=== PATIENT | male | born 1930 | race Hispanic/Latino ===

== ENCOUNTER 2017-12-19 10:15 | Inpatient (IN) | payer OTHER ==
[~2017-12-19] VITALS: Ht 165.1 cm; Wt 77.6 kg
[2017-12-19 10:48] LABS: ABSOLUTE BASOPHIL COUNT 0 /CUMM (0.0-0.2); ABSOLUTE EOSINOPHIL COUNT 0 /CUMM (0.0-0.7); ABSOLUTE LYMPH COUNT 0.5 /CUMM (1.2-3.4); BASOPHIL % 0.2 % (0.0-2.0); EOSINOPHIL % 0 % (0-5); GRANULOCYTE % 88.9 % (42.2-75.2); HEMATOCRIT 41.8 % (42-52); MEAN CORPUSCULAR HGB 30.1 PG (27.0-31.0); MEAN CORPUSCULAR HGB CONC 33.8 G/DL (33.0-37.0); PLATELET COUNT 167 /CUMM (130-400); RED BLOOD CELL CT 4.69 /CUMM (4.70-6.10); WHITE BLOOD CELL COUNT 13.5 /CUMM (4.8-10.8)
--- NOTE | 2017-12-19 11:56 | ED AMS/SEIZURE/WEAK/DIZZY ---
See Addendum History of Present Illness General Chief Complaint: Male Genitourinary Problems Stated Complaint: PT UNABLE TO HOLD URINE INCONTINENCE XS2 Source: patient Exam Limitations: no limitations Vital Signs & Intake/Output Vital Signs & Intake/Output Vital Signs Date Time Temp Pulse Resp B/P B/P Pulse O2 O2 Flow FiO2 Mean Ox Delivery Rate 12/20 1527 99.4 79 18 110/70 93 12/20 1256 94 120/64 12/20 0641 98.0 75 18 116/60 94 12/19 2234 99.1 89 18 126/60 94 Room Air 12/19 2230 Room Air 12/19 2154 98.1 90 18 120/65 95 12/19 2002 99.3 87 19 121/61 97 Room Air ED Intake and Output 12/20 0000 12/19 1200 Intake Total 1500 Output Total 1250 Balance 250 Intake, IV 1500 Output, Urine 1250 Patient 150 lb Weight Weight Reported by Patient Measurement Method Allergies Coded Allergies: NO KNOWN ALLERGIES (09/03/12) Reconcile Medications Finasteride 5 MG TABLET 1 TAB PO DAILY BPH (Reported) Insulin Detemir (Levemir) 100 UNIT/ML VIAL 16 UNITS SC QPM DIABETES (Reported ) Lisinopril 5 MG TABLET 1 TAB PO DAILY HEART (Reported) Metformin HCl 1,000 MG TABLET 1 TAB PO BID DIABETES (Reported) Simvastatin (Zocor*) (Unknown Strength) TABLET (Unknown Dose) PO QPM CHOLESTEROL (Reported) Sitagliptin Phosphate (Januvia) (Unknown Strength) TABLET (Unknown Dose) PO DAILY DIABETES (Reported) Triage Note: PT TO ED WITH C/O UNABLE TO HOLD URINE SINCE THIS AM. Triage Nurses Notes Reviewed? yes Onset: Abrupt Duration: day(s): (1), constant, continues in ED Timing: recent history Injury Environment: home No Modifying Factors: none HPI: 87-year-old male comes into the emergency room for further evaluation increased weakness and some urinary incontinence. Patient has been having some associated fevers and chills at home. Symptoms began this morning. He denies any chest pain shortness of breath vomiting. Some mild nasal congestion. Denies any abdominal pain. Denies any rashes or tick bites he is aware. (Rafa Jimenez) Past History Travel History Traveled to [place] past 21 day No Medical History Any Pertinent Medical History? 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 No (Rafa Jimenez) Review of Systems Review of Systems Constitutional: Reports: see HPI. EENTM: Reports: see HPI. Respiratory: Reports: no symptoms. Cardiovascular: Reports: no symptoms. GI: Reports: no symptoms. Genitourinary: Reports: see HPI. Musculoskeletal: Reports: no symptoms. Skin: Reports: no symptoms. Neurological/Psychological: Reports: no symptoms. Hematologic/Endocrine: Reports: no symptoms. Immunologic/Allergic: Reports: no symptoms. All Other Systems: Reviewed and Negative (Rafa Jimenez) Physical Exam Physical Exam General Appearance: alert, awake, mild distress Head: atraumatic Eyes: Bilateral: normal appearance. Ears, Nose, Throat: normal ENT inspection, hearing grossly normal Neck: normal inspection Respiratory: no respiratory distress Cardiovascular: regular rate/rhythm Gastrointestinal: soft Back: normal inspection Extremities: normal range of motion Neurologic/Psych: awake, alert Skin: intact Core Measures ACS in differential dx? No CVA/TIA Diagnosis No Sepsis Present: No Sepsis Focused Exam Completed? No (Rafa Jimenez) Progress Differential Diagnosis: alcohol intoxication, dehydration, electrolyte imbalance , pneumonia, sepsis, UTI/pyelo, lyme disease Plan of Care: Orders Procedure Date/time Status CBC WITHOUT DIFFERENTIAL 12/21 0600 Active ECHOCARDIOGRAM 12/20 1052 Active CBC WITHOUT DIFFERENTIAL 12/20 06 Complete BASIC ELECTROLYTES PLUS BUN&CR 12/20 06 Complete TROPONIN LEVEL 12/20 0030 Complete EKG 12/20 0030 Active Consistent Carbohydrate 3 12/19 D Active Weight 12/19 2221 Active Vital Signs 12/191 Active Teach/Educate 12/19 2220 Active Pain Treatment and Response 12/19 2220 Active Nutritional Intake, Monitor 12/19 2220 Active Isolation 12/19 2220 Active Intake & Output 07/27 2221 Active Patient Care Conference 12/19 2220 Active Activity/Ambulation 12/19 222 Active TROPONIN LEVEL 12/19 1840 Complete EKG 12/19 1840 Active STREP PNEUMO URINARY ANTIGEN 12/19 171 Complete LEGIONELLA URINARY ANTIGEN 12/19 171 Complete Pathway - chart 12/19 171 Active House Staff 12/19 171 Active VTE Mechanical Prophylaxis 12/19 UNK Active Activity/Ambulation 12/19 UNK Active PHYSICIAN CONSULT 12/19 UNK Active Current Medications Sig/Whitley Start time Last Medication Dose Stop Time Status Admin Atorvastatin Calcium 10 MG 1700 12/20 1700 AC (Lipitor) Azithromycin 500 MG DAILY@1330 12/20 1330 AC 12/20 (Zithromax) 1256 Sodium Chloride 250 ML (Normal Saline 0.9%) Ceftriaxone Sodium 1,000 MG DAILY@1330 12/20 1330 AC 12/20 (Rocephin) 1255 Apixaban 5 MG BID 12/20 1236 AC 12/20 (Eliquis) 1256 Lisinopril 5 MG DAILY 12/20 1130 AC 12/20 (Prinivil) 1256 Insulin Aspart 0 TIDAC 12/20 0800 AC 12/20 (NovoLOG) 1255 Insulin Detemir 16 UNITS QPM 12/19 2100 AC 12/19 (Levemir) 2039 Finasteride 5 MG DAILY 12/19 1836 AC 12/20 (Proscar) 0927 Acetaminophen 650 MG Q6PRN PRN 12/19 1715 AC (Tylenol) Tramadol HCl 25 MG Q6 PRN 12/19 1715 AC (Ultram) Laboratory Tests 12/20/17 0652: Anion Gap 9, Estimated GFR > 60, BUN/Creatinine Ratio 28.8 H, CBC w Diff NO MAN DIFF REQ, RBC 4.51 L, MCV 90.1, MCH 29.5, MCHC 32.8 L, RDW 14.4, MPV 10.2, Gran % 77.8 H, Lymphocytes % 9.9 L, Monocytes % 12.0 H, Eosinophils % 0.3, Basophils % 0, Absolute Granulocytes 10.5 H, Absolute Lymphocytes 1.3, Absolute Monocytes 1.6 H, Absolute Eosinophils 0, Absolute Basophils 0 12/20/17 0030: Troponin I 0.02 12/19/17 1933: Troponin I 0.02 Microbiology 12/19 2329 URINE ROUT: Legionella Antigen - COMP 12/19 2329 URINE ROUT: Streptococcus pneumoniae Antigen (M - COMP Diagnostic Imaging: Viewed by Me: Radiology Read, CT Scan. Discussed w/RAD: Radiology Read, CT Scan. Radiology Impression: PATIENT: HOLLY CHO PRESENT AGE: 87 PATIENT ACCOUNT NO: [id number] : [birth year] LOCATION: [facility] ORDERING PHYSICIAN: Rafa VO SERVICE DATE: 12/19/17 EXAM TYPE : CAT - CT ABD & PELVIS W/O IV CONTRAS; CT CHEST WO IV CONTRAST EXAMINATION: CT CHEST WITHOUT IV CONTRAST CT ABDOMEN AND PELVIS WITHOUT IV CONTRAST CLINICAL INFORMATION: 87-year-old male with fever and weakness. Evaluate for pneumonia or congestive heart failure. Incontinence. Blood in urine. COMPARISON: CXR from TECHNIQUE: Noncontrast multidetector CT imaging examination of the chest , abdomen and pelvis was performed. Axial images are displayed at 0.625 mm and 5 mm slice thickness. Coronal and sagittal reformatted images were generated at the technologist's workstation and submitted for review. DLP: 558 mGy-cm FINDINGS: CHEST - LUNGS and PLEURA: Images of the chest are partially degraded in quality by respiratory motion. Trachea and mainstem bronchi are widely patent. Bronchial thakur are thickened in both lungs. No interstitial edema, pleural effusion or pneumothorax. Multiple micronodular opacities in the lingula are likely secondary to inflammation or infection of the small airways (i.e., probable bronchiolitis). In addition, there are scattered micronodular opacities and scattered, small areas of groundglass and airspace opacity in the left lower lobe. Mild patchy opacity of consolidation and/or atelectasis in the inferior lingula, as well. MEDIASTINUM: Mild cardiomegaly with atherosclerotic calcification of coronary arteries and thoracic aorta. No aortic aneurysm. Calcification is seen at the level of the aortic and mitral valves. No pericardial effusion. The esophagus and thyroid gland are grossly unremarkable. No mediastinal mass. LYMPHATICS: No pathologic sized axillary, hilar or mediastinal lymph nodes. CHEST WALL/BONES: Several old, healed bilateral rib fractures. No acute osseous abnormality. Multilevel osteophyte formation of the visualized degenerated lower cervical and thoracic spine. ABDOMEN AND PELVIS - HEPATOBILIARY: Liver has normal size, contour and attenuation. Gallbladder is unremarkable. No intrahepatic or extrahepatic bile duct dilatation. PANCREAS: Unremarkable. SPLEEN: Unremarkable. ADRENAL GLANDS: Unremarkable. KIDNEYS, URETERS, BLADDER: Kidneys have normal size, cortical thickness and attenuation. Renal vascular calcifications are noted. No nephrolithiasis or ureterolithiasis. Mild fullness of the renal pelvis, bilaterally; however, no overt hydronephrosis. 1.2 cm cortical cyst of the left upper pole and 3.7 cm cortical cyst of the left lower pole. Probable peripelvic cyst in the left lower pole, as well. Urinary bladder, which is moderately distended, has normal wall thickness. No noncontrast imaging evidence of bladder mass or bladder calculi. GI TRACT AND PERITONEUM: Stomach is unremarkable. Loops of bowel are normal in caliber. Appendix is normal. No evidence of acute inflammation or obstruction along the gastrointestinal tract. The amount of fecal material within the colon and rectum is in the normal range. No ascites or pneumoperitoneum. ABDOMINAL WALL: No acute findings. VASCULAR: There is extensive atherosclerotic calcification of the abdominal aorta (and branch vessels) without aortic aneurysm. No retroperitoneal hematoma. LYMPH NODES: No pathologic sized lymph nodes within the abdomen or pelvis. PELVIC VISCERA: Prostate gland is normal in size. No pelvic mass or free fluid. OSSEOUS STRUCTURES: Bone density is diffusely decreased. Within the lumbar spine, facet osteoarthritis is worst at L4-L5. There is vacuum disc degeneration at L4-L5 and L5-S1 and 0.4 cm of grade 1 anterolisthesis of L4 on L5. Multifactorial, severe spinal canal stenosis is present at L4-L5. Osteoarthritis of sacroiliac joints and old, healed, nondisplaced left sacral fracture. Old, healed fractures of left pubic rami. Mild osteoarthritis of hips. IMPRESSION: 1. Mild cardiomegaly without pulmonary edema or pleural effusion. 2. Bronchial thakur are thickened in both lungs, suggestive of airway inflammation. Micronodular opacities are present within the lingula and left lower lobe. Addition, there are patchy groundglass and airspace opacities of the left lower lobe and lingula. Findings are consistent with pneumonia. 3. No specific source of hematuria is identified. No evidence of urolithiasis. Also, no evidence of bladder or renal neoplasm on this noncontrast imaging examination. DICTATED BY: Adrián Briseno MD DATE/TIME DICTATED:12/19/171447 CLERK SPECIALIST:MP DATE/TIME TRANSCRIBED:12/19/171447 CONFIDENTIAL, DO NOT COPY WITHOUT APPROPRIATE AUTHORIZATION. <Electronically signed in Other Vendor System> SIGNED BY: Adrián Briseno MD 12/19/17 1510 Initial ED EKG: rate (99), AFIB, RBBB (Rafa Jimenez) Departure Departure Disposition: STILL A PATIENT Condition: Stable Clinical Impression Primary Impression: Left lower lobe pneumonia Referrals: Patient Has No Primary Care Dr (PCP/Family) Departure Forms: Customer Survey General Discharge Information Admission Note Spoke With: Lavonne GUPTA,Esdras Documentation of Exam: Documentation of any treatments & extenuating circumstances including Concerns Regarding Discharge (functional status, medication knowledge or non-compliance, living conditions, etc.) that warrant an admission rather than observation: Patient will require IV antibiotics. Physical therapy consultation. Case management consultation. Medically not safe for discharge. Possibly urology consultation for hematuria. (Rafa Jimenez) PA/AIRPLANE CABIN ATTENDANT Co-Sign Statement Statement: ED Attending supervision documentation- [X] I saw and evaluated the patient. I have also reviewed all the pertinent lab results and diagnostic results. I agree with the findings and the plan of care as documented in the PA's/AIRPLANE CABIN ATTENDANT's documentation. [] I have reviewed the ED Record and agree with the PA's/AIRPLANE CABIN ATTENDANT's documentation. [] Additions or exceptions (if any) to the PAs/AIRPLANE CABIN ATTENDANT's note and plan are summarized below: [] 12/19/17 1703 87 year old male with nausea, chest clear, normal lactic, being admitted for PNA. Resident Co-Sign Statement Statement: ED Attending supervision documentation- [] I saw and evaluated the patient. I have also reviewed all the pertinent lab results and diagnostic results. I agree with the findings and the plan of care as documented in the Resident's documentation. [] I have reviewed the ED Record and agree with the Resident's documentation. [] Additions or exceptions (if any) to the Resident's note and plan are summarized below: [] (Karen GUPTA,[facility])
[2017-12-19] MEDS ORDERED: FINASTERIDE5 M1 PO (12:25)
[2017-12-19] MEDS ORDERED: LISINOPRIL5 M1 PO (12:25)
[2017-12-19] MEDS ORDERED: METFORMIN HCL1000 M1 PO (12:25)
[2017-12-19] MEDS ORDERED: JANUVIA100 M1 PO (12:25)
[2017-12-19] MEDS ORDERED: LEVEMIR100 UNIT/1 SC (12:26)
[2017-12-19] MEDS ORDERED: ZOCOR20 M1 PO (12:26)
--- NOTE | 2017-12-19 12:55 | RADIOLOGY REPORT ---
EXAMINATION: XR CHEST CLINICAL INFORMATION: Cough. Fever. Congestion. COMPARISON: Chest done on 09/03/2012. TECHNIQUE: 2 views of the chest were obtained. FINDINGS: Mild pulmonary venous congestion is noted. The cardiomediastinal silhouette is mildly enlarged. Subtle retrocardiac airspace disease is noted, may represent atelectasis versus infiltrate. The remainder of the lung sorensen are clear. There is no evidence of any pleural effusion seen. The visualized upper abdomen is unremarkable. IMPRESSION: Features consistent with mild CHF. Subtle retrocardiac airspace disease is noted, may represent superimposed atelectasis, infiltrate or combination thereof.
--- NOTE | 2017-12-19 15:10 | CT SCAN REPORT ---
EXAMINATION: CT CHEST WITHOUT IV CONTRAST CT ABDOMEN AND PELVIS WITHOUT IV CONTRAST CLINICAL INFORMATION: 87-year-old male with fever and weakness. Evaluate for pneumonia or congestive heart failure. Incontinence. Blood in urine. COMPARISON: CXR from 12/19/2017 TECHNIQUE: Noncontrast multidetector CT imaging examination of the chest, abdomen and pelvis was performed. Axial images are displayed at 0.625 mm and 5 mm slice thickness. Coronal and sagittal reformatted images were generated at the technologist's workstation and submitted for review. DLP: 558 mGy-cm FINDINGS: CHEST - LUNGS and PLEURA: Images of the chest are partially degraded in quality by respiratory motion. Trachea and mainstem bronchi are widely patent. Bronchial thakur are thickened in both lungs. No interstitial edema, pleural effusion or pneumothorax. Multiple micronodular opacities in the lingula are likely secondary to inflammation or infection of the small airways (i.e., probable bronchiolitis). In addition, there are scattered micronodular opacities and scattered, small areas of groundglass and airspace opacity in the left lower lobe. Mild patchy opacity of consolidation and/or atelectasis in the inferior lingula, as well. MEDIASTINUM: Mild cardiomegaly with atherosclerotic calcification of coronary arteries and thoracic aorta. No aortic aneurysm. Calcification is seen at the level of the aortic and mitral valves. No pericardial effusion. The esophagus and thyroid gland are grossly unremarkable. No mediastinal mass. LYMPHATICS: No pathologic sized axillary, hilar or mediastinal lymph nodes. CHEST WALL/BONES: Several old, healed bilateral rib fractures. No acute osseous abnormality. Multilevel osteophyte formation of the visualized degenerated lower cervical and thoracic spine. ABDOMEN AND PELVIS - HEPATOBILIARY: Liver has normal size, contour and attenuation. Gallbladder is unremarkable. No intrahepatic or extrahepatic bile duct dilatation. PANCREAS: Unremarkable. SPLEEN: Unremarkable. ADRENAL GLANDS: Unremarkable. KIDNEYS, URETERS, BLADDER: Kidneys have normal size, cortical thickness and attenuation. Renal vascular calcifications are noted. No nephrolithiasis or ureterolithiasis. Mild fullness of the renal pelvis, bilaterally; however, no overt hydronephrosis. 1.2 cm cortical cyst of the left upper pole and 3.7 cm cortical cyst of the left lower pole. Probable peripelvic cyst in the left lower pole, as well. Urinary bladder, which is moderately distended, has normal wall thickness. No noncontrast imaging evidence of bladder mass or bladder calculi. GI TRACT AND PERITONEUM: Stomach is unremarkable. Loops of bowel are normal in caliber. Appendix is normal. No evidence of acute inflammation or obstruction along the gastrointestinal tract. The amount of fecal material within the colon and rectum is in the normal range. No ascites or pneumoperitoneum. ABDOMINAL WALL: No acute findings. VASCULAR: There is extensive atherosclerotic calcification of the abdominal aorta (and branch vessels) without aortic aneurysm. No retroperitoneal hematoma. LYMPH NODES: No pathologic sized lymph nodes within the abdomen or pelvis. PELVIC VISCERA: Prostate gland is normal in size. No pelvic mass or free fluid. OSSEOUS STRUCTURES: Bone density is diffusely decreased. Within the lumbar spine, facet osteoarthritis is worst at L4-L5. There is vacuum disc degeneration at L4-L5 and L5-S1 and 0.4 cm of grade 1 anterolisthesis of L4 on L5. Multifactorial, severe spinal canal stenosis is present at L4-L5. Osteoarthritis of sacroiliac joints and old, healed, nondisplaced left sacral fracture. Old, healed fractures of left pubic rami. Mild osteoarthritis of hips. IMPRESSION: 1. Mild cardiomegaly without pulmonary edema or pleural effusion. 2. Bronchial thakur are thickened in both lungs, suggestive of airway inflammation. Micronodular opacities are present within the lingula and left lower lobe. Addition, there are patchy groundglass and airspace opacities of the left lower lobe and lingula. Findings are consistent with pneumonia. 3. No specific source of hematuria is identified. No evidence of urolithiasis. Also, no evidence of bladder or renal neoplasm on this noncontrast imaging examination.
--- NOTE | 2017-12-19 17:32 | History & Physical ---
See Addendum De Rodriguez 12/19/17 6419: General Information and HPI MD Statement: I have seen and personally examined HOLLY CHO and documented this H&P. The patient is a 87 year old M who presented with a patient stated chief complaint of [weakness]. Source of Information: family (Daughter-JESS) Exam Limitations: no limitations History of Present Illness: Mr. Cho is a 87-year-old male with past medical history significant for: Hypertension, hyperlipidemia, BPH, type 2 diabetes mellitus. Patient is described as special needs by his daughter, unable to communicate clearly does not speak Turkish only Moroccan, all information received from daughter Nena. Patient was complaining of nausea and weakness since this morning, generalized weakness, states has not been feeling well. Patient had one episode of urinating on himself this morning, this is never happened before. Patient denies cough, fever, chills, abdominal pain, vomiting, diarrhea, constipation, increased urinary frequency, urgency, pain with urination, more episodes of inability to contain his urine. Denies sick contacts, recent travel. Ed vitals: Temperature 101.1, heart rate 97, respiratory rate 18, blood pressure 130/71, O2 sat 95% on room air ED labs: White blood cell 13.5, BNP 1430, glucose 207 Allergies/Medications Allergies: Coded Allergies: NO KNOWN ALLERGIES (09/03/12) Home Med list Finasteride 5 MG TABLET 1 TAB PO DAILY BPH (Reported) Insulin Detemir (Levemir) 100 UNIT/ML VIAL 16 UNITS SC QPM DIABETES (Reported ) Lisinopril 5 MG TABLET 1 TAB PO DAILY HEART (Reported) Metformin HCl 1,000 MG TABLET 1 TAB PO BID DIABETES (Reported) Simvastatin (Zocor*) (Unknown Strength) TABLET (Unknown Dose) PO QPM CHOLESTEROL (Reported) Sitagliptin Phosphate (Januvia) (Unknown Strength) TABLET (Unknown Dose) PO DAILY DIABETES (Reported) Past History Travel History Traveled to [place] past 21 day No Medical History Neurological: NONE EENT: NONE Cardiovascular: hypertension, HIGH CHOLESTEROL Respiratory: NONE Gastrointestinal: NONE Hepatic: NONE Renal: benign prost hyperplasia Musculoskeletal: NONE Psychiatric: NONE Endocrine: diabetes Blood Disorders: NONE Cancer(s): NONE DISTRICT WIRE CHIEF/Reproductive: NONE History of MRSA: No History of VRE: No History of CDIFF: No Surgical History Surgical History: non-contributory Past Family/Social History Psychosocial History ETOH Use: denies use Illicit Drug Use: denies illicit drug use Review of Systems Review of Systems Constitutional: Reports: see HPI. Exam & Diagnostic Data Last 24 Hrs of Vital Signs/I&O Vital Signs Date Time Temp Pulse Resp B/P B/P Pulse O2 O2 Flow FiO2 Mean Ox Delivery Rate 12/19 1651 99.1 88 19 115/69 95 Room Air 12/19 1239 99.9 90 17 101/55 94 Room Air 12/19 1122 100.3 12/19 1112 100.3 12/19 1023 101.1 97 18 130/71 95 Room Air Room Air Intake & Output 12/19 1600 12/19 0800 12/19 0000 Intake Total 500 Output Total 600 Balance -100 Intake, IV 500 Output, Urine 600 Patient 150 lb Weight Weight Reported by Patient Measurement Method Physical Exam General Appearance Alert, Oriented X3, Cooperative Skin No Rashes, Stasis Dermatitis of r. lower extremity HEENT Atraumatic, Blind in Right Eye Neck Supple, No LAD Cardiovascular Regular Rate, Normal S1, Normal S2 Lungs Normal Air Movement, Minimal expiratory wheezing bilat. lung bases Abdomen Normal Bowel Sounds, Soft, No Tenderness Neurological Strength at 5/5 X4 Ext, Cranial Nerves 3-12 NL Extremities No Cyanosis, No Edema, Normal Pulses Vascular Normal Pulses, Pulses Symmetrical Last 24 Hrs of Labs/Haja: Laboratory Tests 12/19/17 1049: Urinalysis LIGHT H, Urine Color YEL, Urine Clarity CLEAR, Urine pH 6.0, Ur Specific [place] 1.025, Urine Protein TRACE H, Urine Ketones 15 H, Urine Nitrite NEG, Urine Bilirubin NEG, Urine Urobilinogen 0.2, Ur Leukocyte Esterase NEG, Ur Microscopic SEDIMENT EXAMINED, Urine RBC 15-25 H, Urine WBC 1-3 H, Ur Epithelial Cells RARE, Urine Bacteria RARE H, Urine Mucus MANY H, Urine Hemoglobin MOD H, Urine Glucose >=1000 H 12/19/17 1030: Anion Gap 12, Estimated GFR > 60, BUN/Creatinine Ratio 31.3 H, Glucose 207 H, Lactic Acid 1.3, Calcium 9.7, Total Bilirubin 0.9, AST 20, ALT 44, Alkaline Phosphatase 45, Troponin I < 0.01, Rpy-T-Oeyrcietlhp Pept 1430 H, Total Protein 6.9, Albumin 4.1, Globulin 2.8, Albumin/Globulin Ratio 1.5, Lipase 98, CBC w Diff NO MAN DIFF REQ, RBC 4.69 L, MCV 89.0, MCH 30.1, MCHC 33.8, RDW 14.0, MPV 9.0, Gran % 88.9 H, Lymphocytes % 3.4 L, Monocytes % 7.5, Eosinophils % 0, Basophils % 0.2, Absolute Granulocytes 12.0 H, Absolute Lymphocytes 0.5 L, Absolute Monocytes 1.0 H, Absolute Eosinophils 0, Absolute Basophils 0 Microbiology 12/19 1713 URINE ROUT: Legionella Antigen - COLB 12/19 1713 URINE ROUT: Streptococcus pneumoniae Antigen (M - COLB 12/19 1145 BLOOD: Blood Culture - RECD 12/19 1049 URINE ROUT: Urine Culture - RECD 12/19 1030 BLOOD: Blood Culture - RECD Diagnostic Data EKG Results New onset atrial fibrillation, right bundle branch block CXR Results IMPRESSION: Features consistent with mild CHF. Subtle retrocardiac airspace disease is noted, may represent superimposed atelectasis, infiltrate or combination thereof. Other Results Chest CT: Bronchial thakur are thickened in both lungs, suggestive of airway inflammation. Micronodular opacities are present within the lingula and left lower lobe. Addition, there are patchy groundglass and airspace opacities of the left lower lobe and lingula. Findings are consistent with pneumonia. Abdo/Pelvic CT: IMPRESSION No specific source of hematuria is identified. No evidence of urolithiasis. Also , no evidence of bladder or renal neoplasm on this noncontrast imaging examination. Assessment/Plan Assessment: Mr. Cho is a 87-year-old male with past medical history significant for: Hypertension, hyperlipidemia, BPH, type 2 diabetes mellitus. Patient was complaining of nausea and weakness since morning of 12/19/17, generalized weakness, states has not been feeling well. Patient had one episode of urinating on himself this morning, this is never happened before Problem List: 1. Pneumonia 2. NewonsetA. fib 3. hypertension 4. Hyperlipidemia 5. Type 2 diabetes mellitus 6. BPH #Pneumonia: Patient had fever on admission, increased white blood cell, CT findings are consistent with pneumonia. Curb 65 score = 2 -Follow-up respiratory cultures -Follow-up blood cultures -Follow-up urinary strep pneumo and Legionella #New onset A. fib: Comparison EKG 2013 showed regular rate and rhythm, right bundle block branch block. -Consult cardiology w/ Dr. Aden -1 time dose Lovenox for anticoagulation -Transfer to telemetry Hypertension -Will hold home antihypertensive medications for the night, reassess in a.m. -Received a one-time dose Lasix in the ED Hyperlipidemia: BPH: Type 2 diabetes mellitus: -Consistent carbohydrate 3 diet As Ranked By This Provider Problem List: 1. Pneumonia Core Measures/Misc (02/09) Acute Coronary Syndrome ACS Diagnosis: No Congestive Heart Failure Congestive Heart Failure Diagnosis No Cerebrovascular Accident CVA/TIA Diagnosis: No VTE (View Protocol) VTE Risk Factors Age>40 No Mechanical VTE Prophylaxis d/t N/A MechProphylax Ordered No VTE Pharm Prophylaxis d/t NA PharmProphylax ordered (Given Lovenox ) Sepsis (View protocol) Sepsis Present: No If YES complete Sepsis Event Note If YES complete Sepsis Event Note Esdras Banerjee 12/19/17 7914: Core Measures/Misc (02/09) Sepsis (View protocol) If YES complete Sepsis Event Note If YES complete Sepsis Event Note Attending MD Review Statement Attending Statement Attending MD Statement: examined this patient, discuss w/resident/PA/RAILWAY TRACK WORKER, agreed w/resident/PA/RAILWAY TRACK WORKER, discussed with family, reviewed EMR data (avail), discussed with nursing, discussed with case mgmt, reviewed images, amended to note Attending Assessment/Plan: This is an 87-year-old male with history of diabetes, hypertension, BPH, hyperlipidemia, and possible cognitive impairment, Moroccan speaking brought in to the emergency department by his daughter for weakness, chills and cough. Patient poor historian, obtained from daughter bedside. Patient is fouund to have temp 101.1, leukocytosis and CT chest showing pneumonia with patchy groundglass and airspace opacities of the left lower lobe and lingula. Findings are consistent with pneumonia. Patient will be admitted to inpatient medical services for community acquired pneumonia. Start iv ceftriaxone and azithimycin, oxygen supplementation as needed, bronchodilators as needed, blood cultures, urine for strep and legionella. RISS and titrate insulin as needed. Obtain repeat UA and start flomax for bph if not on home meds. gi/dvt prophylaxis full code. Rosanne GUPTA,Melania 12/19/17 1934: Core Measures/Misc (02/09) Sepsis (View protocol) Sepsis Present: Yes If YES complete Sepsis Event Note If YES complete Sepsis Event Note Inpatient Sepsis Exam Sepsis Cardiac Exam: Regular Rate/Rhythm Sepsis Resp Exam: CTA Sepsis Cap Refill Exam: >2 sec Sepsis Peripheral Pulse Exam: Normal Sepsis Peripheral Pulse Location: Dorsalis Pedis Sepsis Skin Color Exam: Normal for Ethnicity Skin Temp/Moisture Exam: Warm/Dry Resident Review Statement Resident Statement: examined this patient, discussed with spring intern, agreed with spring intern, discussed with family, reviewed EMR data (avail), discussed with nursing , reviewed images Other Findings: Mr. Cho is an 87-year-old gentleman with past medical history significant for hypertension, hyperlipidemia, type 2 diabetes, BPH, and hearing loss is brought in by her daughter because of weakness and an episode of urinary incontinence this morning. Patient is [place]an-speaking and history was obtained from the daughter. Per the daughter, pt was in his usual state of health until this morning when he started complaining of fatigue and had an episode of incontinence which according to the daughter was new and has never happened in the past. Denies any other symptoms including fever/chills, abdominal pain, pain/burning with urination, urinary frequency urgency, cough, chest pain, palpitations, shortness of breath or orthopnea. Vitals on admission were temperature of 101.1, heart rate 97, respiratory rate 18, blood pressure 130/71 and oxygen saturation 95% on room air. Labs were significant for WBC count of 13.5 without bandemia, BUN/creatinine of 25/0.8, blood glucose 207, and proBNP of 1430. UA showed 15-25 RBC, and Urine glucose > 1000. CXR and CT chest were positive for LLB and lingular Pneumonia. Problem List 1. Sepsis likely 2/2 CAP; CURB-65 score is 2, needs inpatient treatment. Meets SIRS criteria with elevated WBC count, Temp 101.1 and HR 97. Even though patient meets sepsis criteria, clinically did not require aggresive IV hydration. Also even the patient does not have any respiratory symptoms, given his elevated white count, fever and CT findings of pneumonia we will start the patient on antibiotics. 2. A.Fib on recent EKG,rate controlled, no previous Hx 3. Microscopic hematuria - UA negative for any infection, also CT abd/pelvis negative for any pathology. 4. Elevated Pro-BNP with Cardiomegaly on CXR, No hx of CHF 5. Hx of Diabetes 6. Hx of hypertension, hyperlipidemia and BPH. - Will Admit the patient to telemetry floor - Patient was given IV ceftriaxone and azithromycin in the ER, will continue. - Patient also received 1 L of normal saline bolus in the ER, will hold off on further fluids. - Follow-up blood cultures, urine cultures, urine strep and L egionella antigen. -Supplemental oxygen if needed. - Cardiology consult for new onset A. fib. - Repeat troponin and EKG 3. - Patient was given full dose of Lovenox 1 for anticoagulation. - Patient was given Lasix x 1 in ER for concerns of CHF due to elevated Pro-BNP and Mild CHF on CXR. Clinically pt does not seem to have CHF, will hold off on any further Lasix. -Hold metformin and Januvia, start the patient on NovoLog sliding scale and continue Levemir 15 units at bedtime. -Accu-Cheks TIDAC and at bedtime. - Confirm doses of Simvastatin and Januvia with daughter in am. Resume simvastatin after confirming the dose. - Outpatient follow up with Urology. - Continue Losartan and Flomax. DVT prophylaxis; ALPS and S/C lovenox Patient is Full code.
[2017-12-19 22:34] VITALS: BP 126/60
[2017-12-20 06:41] VITALS: BP 116/60
[2017-12-20 08:28] LABS: ABSOLUTE BASOPHIL COUNT 0 /CUMM (0.0-0.2); ABSOLUTE EOSINOPHIL COUNT 0 /CUMM (0.0-0.7); ABSOLUTE GRANULOCYTE CT 10.5 /CUMM (1.4-6.5); ABSOLUTE LYMPH COUNT 1.3 /CUMM (1.2-3.4); ABSOLUTE MONOCYTE COUNT 1.6 /CUMM (0.10-0.60); BASOPHIL % 0 % (0.0-2.0); EOSINOPHIL % 0.3 % (0-5); GRANULOCYTE % 77.8 % (42.2-75.2); HEMATOCRIT 40.7 % (42-52); MEAN CORPUSCULAR HGB 29.5 PG (27.0-31.0); MEAN CORPUSCULAR HGB CONC 32.8 G/DL (33.0-37.0); MEAN CORPUSCULAR VOLUME 90.1 FL (80.0-94.0); MEAN PLATELET VOLUME 10.2 FL (7.4-10.4); PLATELET COUNT 147 /CUMM (130-400); RBC DISTRIBUTION WIDTH 14.4 % (11.5-14.5); RED BLOOD CELL CT 4.51 /CUMM (4.70-6.10); WHITE BLOOD CELL COUNT 13.4 /CUMM (4.8-10.8)
--- NOTE | 2017-12-20 09:48 | PN- Housestaff ---
Frederick GUPTA,Rosita 12/20/17 0948: Subjective Follow-up For: pneumonia new onset afib Tele-Events Since Last Visit: afib 79-91 no events Subjective: Patient seen and examined. He denies any chest pain or shortness of breath. His vitals are stable and he is not on any oxygen. He has continued to be in atrial fibrillation. Review of Systems Constitutional: Reports: no symptoms. Cardiovascular: Reports: no symptoms. Respiratory: Reports: no symptoms. Gastrointestinal: Reports: no symptoms. Musculoskeletal: Reports: no symptoms. Neurological/Psychological: Reports: see HPI. Objective Last 24 Hrs of Vital Signs/I&O Vital Signs Date Time Temp Pulse Resp B/P B/P Pulse O2 O2 Flow FiO2 Mean Ox Delivery Rate 12/20 0641 98.0 75 18 116/60 94 12/19 2234 99.1 89 18 126/60 94 Room Air 12/19 2230 Room Air 12/19 2154 98.1 90 18 120/65 95 12/19 2003 99.3 87 19 121/61 97 Room Air 12/19 1651 99.1 88 19 115/69 95 Room Air 12/19 1239 99.9 90 17 101/55 94 Room Air 12/19 1122 100.3 12/19 1112 100.3 Intake & Output 12/20 1600 12/20 0800 12/20 0000 Intake Total 240 1000 Output Total 600 650 Balance -360 350 Intake, IV 1000 Intake, Oral 240 Output, Urine 600 650 Physical Exam General Appearance: Alert, Cooperative, No Acute Distress Skin: No Rashes, chronic venous insufficiency lower ext bilaterally Skin Temp/Moisture Exam: Warm/Dry Sepsis Skin Exam (color): Normal for Ethnicity HEENT: Atraumatic, EOMI, Mucous Membr. moist/pink Neck: Supple, No JVD Cardiovascular: Regular Rate, Normal S1, Normal S2, No Murmurs Lungs: lower left lung crackles and very mild exp wheezes througout Abdomen: Normal Bowel Sounds, Soft, No Tenderness Extremities: No Clubbing, No Cyanosis, No Edema Current Medications: Current Medications Sig/Whitley Start time Last Medication Dose Route Stop Time Status Admin Acetaminophen 650 MG Q6PRN PRN 12/19 1715 AC PO Acetaminophen 650 MG ONCE ONE 12/19 1130 DC 12/19 PO 12/19 1131 1122 Acetaminophen 0 .STK-MED ONE 12/19 1121 DC PO Azithromycin 500 MG DAILY@1330 12/20 1330 AC Sodium Chloride 250 ML IV Azithromycin 500 MG ONCE ONE 12/19 1300 DC 12/19 Sodium Chloride 250 ML IV 12/19 1359 1340 Ceftriaxone Sodium 1,000 MG DAILY@1330 12/20 1330 AC IV Ceftriaxone Sodium 0 .STK-MED ONE 12/19 1320 DC .ROUTE Ceftriaxone Sodium 1,000 MG ONCE ONE 12/19 1300 DC 12/19 IV 12/19 1301 1340 Enoxaparin Sodium 0 .STK-MED ONE 12/19 2035 DC SC Enoxaparin Sodium 0 .STK-MED ONE 12/19 2034 DC SC Enoxaparin Sodium 70 MG ONCE ONE 12/19 1830 DC 12/19 SC 12/19 183 2039 Enoxaparin Sodium 40 MG DAILY 12/19 1711 DC SC Finasteride 5 MG DAILY 12/19 1836 AC 12/20 PO 0927 Furosemide 0 .STK-MED ONE 12/19 1319 DC IV Furosemide 40 MG ONCE ONE 12/19 1300 DC 12/19 IV 12/19 1301 1340 Insulin Aspart 0 TIDAC 12/20 0800 AC SC Insulin Detemir 16 UNITS QPM 12/19 2100 AC 12/19 SC 2039 Sodium Chloride 1,000 ML BOLUS ONE 12/19 1615 DC 12/19 IV 12/19 1714 1650 Sodium Chloride 1,000 ML BOLUS ONE 12/19 1300 CAN IV 12/19 1359 Tramadol HCl 25 MG Q6 PRN 12/19 1715 AC PO Last 24 Hrs of Lab/Haja Results Last 24 Hrs of Labs/Mics: Laboratory Tests 12/20/17 0652: Anion Gap 9, Estimated GFR > 60, BUN/Creatinine Ratio 28.8 H, CBC w Diff NO MAN DIFF REQ, RBC 4.51 L, MCV 90.1, MCH 29.5, MCHC 32.8 L, RDW 14.4, MPV 10.2, Gran % 77.8 H, Lymphocytes % 9.9 L, Monocytes % 12.0 H, Eosinophils % 0.3, Basophils % 0, Absolute Granulocytes 10.5 H, Absolute Lymphocytes 1.3, Absolute Monocytes 1.6 H, Absolute Eosinophils 0, Absolute Basophils 0 12/20/17 0030: Troponin I 0.02 12/19/17 1933: Troponin I 0.02 12/19/17 1049: Urinalysis LIGHT H, Urine Color YEL, Urine Clarity CLEAR, Urine pH 6.0, Ur Specific [place] 1.025, Urine Protein TRACE H, Urine Ketones 15 H, Urine Nitrite NEG, Urine Bilirubin NEG, Urine Urobilinogen 0.2, Ur Leukocyte Esterase NEG, Ur Microscopic SEDIMENT EXAMINED, Urine RBC 15-25 H, Urine WBC 1-3 H, Ur Epithelial Cells RARE, Urine Bacteria RARE H, Urine Mucus MANY H, Urine Hemoglobin MOD H, Urine Glucose >=1000 H Microbiology 12/19 2330 URINE ROUT: Legionella Antigen - COMP 12/19 233 URINE ROUT: Streptococcus pneumoniae Antigen (M - COMP 12/19 1145 BLOOD: Blood Culture - RECD 12/19 1049 URINE ROUT: Urine Culture - RES GRAM POSITIVE COCCI Assessment/Plan Assessment: Mr. Lopez is a 87-year-old male with past medical history significant for: Hypertension, hyperlipidemia, BPH, type 2 diabetes mellitus. Patient was complaining of nausea and weakness since morning of 12/19/17, generalized weakness, states has not been feeling well. Patient had one episode of urinating on himself this morning, this is never happened before Problem List: 1. Pneumonia 2. NewonsetA. fib 3. hypertension 4. Hyperlipidemia 5. Type 2 diabetes mellitus 6. BPH #Pneumonia: Patient had fever on admission, increased white blood cell, CT findings are consistent with pneumonia. Curb 65 score = 2. Chest x-ray showed mild CHF with potential superimposed atelectasis, infiltrate. CT scan of the chest showed bronchial thickening, left lower lobe and lingula patchy groundglass and airspace opacities consistent with pneumonia. Lactic acid negative. -WBC count has remained about stable from 13.5 yesterday to 13.4 today. -Follow-up respiratory cultures and blood cultures -Follow-up urinary strep pneumo and Legionella which are negative #New onset A. fib: Comparison EKG 2012 showed regular rate and rhythm, right bundle block branch block. As per cardio: would recommend starting the patient on Eliquis 5 mg p.o. twice daily given CHADSVASC score of 4: Stroke risk was 4.8 % per year in >90,000 patients (the [place] Atrial Fibrillation Cohort Study) and 6.7% risk of stroke/TIA/systemic embolism. -Continue on telemetry -Appreciate cardiac consult for anticoagulation. Will start Eliquis 5mg daily. -Echocardiogram Evidence of hematuria -CT scan of the abdomen showed no source -Continue to monitor -UCx Hypertension -Patient's blood pressure has been low normal, this morning 116/60. As per cardio we can restart lisinopril. -Received a one-time dose Lasix in the ED for evidence of mild CHF on his chest x-ray. Hyperlipidemia: BPH: Type 2 diabetes mellitus: -Consistent carbohydrate 3 diet Problem List: 1. Pneumonia Pain Ratin Pain Location: na Pain Goal: Remain pain free Pain Plan: na Tomorrow's Labs & Rationales: usman BanerjeeEsdras 12/20/17 1258: Attending MD Review Statement Attending Statement Attending MD Statement: examined this patient, discuss w/resident/PA/UX INTERACTION DESIGNER, agreed w/resident/PA/UX INTERACTION DESIGNER, discussed with family, reviewed EMR data (avail), discussed with nursing, discussed with case mgmt, reviewed images, amended to note Attending Assessment/Plan: Agree with above. Patient is on iv antibioitcs for pneumonia D2 and follow cultures. New onset afib rate controlled, can transition to PO eliquis. Would need case management/SW to help with insurance issues.
--- NOTE | 2017-12-20 10:11 | Cons- Cardiology ---
Peter Zazueta 12/20/17 0952: General Information and HPI Consulting Request Date of Consult: 12/20/17 Requested By: Esdras Banerjee MD Reason for Consult: New onset Afib Source of Information: family (daughter-keren) Exam Limitations: language barrier History of Present Illness: This is an 87 year old male with history of HTN, DM, HLD who presented to to [facility] with his daughter complaining of generalized fatigue, nausea, vomiting and urinary incontinence. History is limited secondary to language barrier and is obtained by his daughter Keren. Felisha reports he was in his normal state of health until yesterday when he suddenly felt weak, became nauseous and vomited. Apparently the patient had an episode of urinary incontinence and she brought him to the ED. She states he has not complained for chest pain, dizziness, palpitations, orthopnea, PND. There has been no recent cough, fever, chills, or recent travel. In terms of cardiac history the patient has never been seen by motorsports technician according to his daughter. No history of A. fib. In the ED, EKG revealed the patient was in a new onset A. fib, rate 79, right bundle branch block. Chest x- ray showed mild CHF, retrocardiac disease questionable infiltrate. CT of the chest confirmed a left lower lobe pneumonia. The patient was given Lovenox injections overnight,. Telemetry reviewed patient has remained A. fib 70s-90s. The patient's daughter states that he is very active at home, without limitations no recent falls, no dyspnea with exertion Allergies/Medications Allergies: Coded Allergies: NO KNOWN ALLERGIES (09/03/12) Home Med List: Finasteride 5 MG TABLET 1 TAB PO DAILY BPH (Reported) Insulin Detemir (Levemir) 100 UNIT/ML VIAL 16 UNITS SC QPM DIABETES (Reported ) Lisinopril 5 MG TABLET 1 TAB PO DAILY HEART (Reported) Metformin HCl 1,000 MG TABLET 1 TAB PO BID DIABETES (Reported) Simvastatin (Zocor*) (Unknown Strength) TABLET (Unknown Dose) PO QPM CHOLESTEROL (Reported) Sitagliptin Phosphate (Januvia) (Unknown Strength) TABLET (Unknown Dose) PO DAILY DIABETES (Reported) Current Medications: Current Medications Sig/Whitley Start time Last Medication Dose Route Stop Time Status Admin Acetaminophen 650 MG Q6PRN PRN 12/19 1715 AC PO Acetaminophen 650 MG ONCE ONE 12/19 1130 DC 12/19 PO 12/19 1131 1122 Acetaminophen 0 .STK-MED ONE 12/19 1121 DC PO Azithromycin 500 MG DAILY@1330 12/20 1330 AC Sodium Chloride 250 ML IV Azithromycin 500 MG ONCE ONE 12/19 1300 DC 12/19 Sodium Chloride 250 ML IV 12/19 1359 1340 Ceftriaxone Sodium 1,000 MG DAILY@1330 12/20 1330 AC IV Ceftriaxone Sodium 0 .STK-MED ONE 12/19 1320 DC .ROUTE Ceftriaxone Sodium 1,000 MG ONCE ONE 12/19 1300 DC 12/19 IV 12/19 1301 1340 Enoxaparin Sodium 0 .STK-MED ONE 12/19 2035 DC SC Enoxaparin Sodium 0 .STK-MED ONE 12/19 2034 DC SC Enoxaparin Sodium 70 MG ONCE ONE 12/19 1830 DC 12/19 SC 12/19 1831 2039 Enoxaparin Sodium 40 MG DAILY 12/19 1711 DC SC Finasteride 5 MG DAILY 12/19 1836 AC 12/20 PO 0927 Furosemide 0 .STK-MED ONE 12/19 1319 DC IV Furosemide 40 MG ONCE ONE 12/19 1300 DC 12/19 IV 12/19 1301 1340 Insulin Aspart 0 TIDAC 12/20 0800 AC SC Insulin Detemir 16 UNITS QPM 12/19 2100 AC 12/19 SC 2039 Sodium Chloride 1,000 ML BOLUS ONE 12/19 1615 DC 12/19 IV 12/19 1714 1650 Sodium Chloride 1,000 ML BOLUS ONE 12/19 1300 CAN IV 12/19 1359 Tramadol HCl 25 MG Q6 PRN 12/19 1715 AC PO Review of Systems Review of Systems: Review of systems: See HPI, All other systems negative. Constitutional, positive weakness, no chills no fever HEENT: no sore throat no congestion Cardiovascular: No chest pain , no palpitation Skin: no rashes, no change in skin Respiratory: No dyspnea no cough no sputum no hemoptysis GI: nausea vomiting, no diarrhea, no bloating/constipation : No dysuria No hematuria, no frequency Muscle skeletal: No joint pain, no back pain Neurologic: , no headache Psych: No stress Heme/endocrine: No bruising Immunology: No lymphadenopathy Past History Travel History Traveled to [place] past 21 day No Medical History Neurological: NONE EENT: NONE Cardiovascular: hypertension, HIGH CHOLESTEROL Respiratory: NONE Gastrointestinal: NONE Hepatic: NONE Renal: benign prost hyperplasia Musculoskeletal: NONE Psychiatric: NONE Endocrine: diabetes Blood Disorders: NONE Cancer(s): NONE APPLICATIONS CHEMIST/Reproductive: NONE Surgical History Surgical History: non-contributory Psychosocial History Where Do You Live? Home Smoking Status: Unknown If Ever Smoked ETOH Use: denies use Illicit Drug Use: denies illicit drug use Exam & Diagnostic Data Vital Signs and I&O Vital Signs Date Time Temp Pulse Resp B/P B/P Pulse O2 O2 Flow FiO2 Mean Ox Delivery Rate 12/20 0641 98.0 75 18 116/60 94 12/19 2234 99.1 89 18 126/60 94 Room Air 12/19 2230 Room Air 12/19 2154 98.1 90 18 120/65 95 12/19 2003 99.3 87 19 121/61 97 Room Air 12/19 1651 99.1 88 19 115/69 95 Room Air 12/19 1239 99.9 90 17 101/55 94 Room Air 12/19 1122 100.3 12/19 1112 100.3 12/19 1023 101.1 97 18 130/71 95 Room Air Room Air Intake & Output 12/20 1600 12/20 0800 12/20 0000 12/19 1600 12/19 0800 12/19 0000 Intake Total 240 1000 500 Output Total 600 650 600 Balance -360 350 -100 Intake, IV 1000 500 Intake, Oral 240 Output, Urine 600 650 600 Patient 150 lb Weight Weight Reported by Patient Measurement Method Physical Exam: Well-developed well-nourished person in no acute distress HEENT: Normal EENT exam; PERRL, EOMI. HEAD is atraumatic. moist mucous membranes. Neck: Supple, normal range of motion Back: Full range of motion Cardiovascular: Irregular rhythm, no murmurs rubs or gallops, normal JVP Respiratory: Chest nontender.There were no bony deformities, no asymmetry. No respiratory distress. Patient speaking in full complete sentences. Diminished breath sounds bilaterally no wheezing rhonchi rales Abdomen: Soft, nontender nondistended Extremity: No edema, full range of motion of extremities, Neuro: Awake Skin: No appreciable rash on exposed skin, skin is warm and dry. Labs/Haja Results: Laboratory Tests 12/20 12/20 12/19 0652 0030 1933 Chemistry Sodium (137 - 145 mmol/L) 140 Potassium (3.5 - 5.1 mmol/L) 4.0 Chloride (98 - 107 mmol/L) 103 Carbon Dioxide (22 - 30 mmol/L) 29 Anion Gap (5 - 16) 9 BUN (9 - 20 mg/dL) 23 H Creatinine (0.7 - 1.2 mg/dL) 0.8 Estimated GFR (>60 ml/min) > 60 BUN/Creatinine Ratio (7 - 25 %) 28.8 H Troponin I (<0.11 ng/ml) 0.02 0.02 Hematology CBC w Diff NO MAN DIFF REQ WBC (4.8 - 10.8 /CUMM) 13.4 H RBC (4.70 - 6.10 /CUMM) 4.51 L Hgb (14.0 - 18.0 G/DL) 13.3 L Hct (42 - 52 %) 40.7 L MCV (80.0 - 94.0 FL) 90.1 MCH (27.0 - 31.0 PG) 29.5 MCHC (33.0 - 37.0 G/DL) 32.8 L RDW (11.5 - 14.5 %) 14.4 Plt Count (130 - 400 /CUMM) 147 MPV (7.4 - 10.4 FL) 10.2 Gran % (42.2 - 75.2 %) 77.8 H Lymphocytes % (20.5 - 51.1 %) 9.9 L Monocytes % (1.7 - 9.3 %) 12.0 H Eosinophils % (0 - 5 %) 0.3 Basophils % (0.0 - 2.0 %) 0 Absolute Granulocytes (1.4 - 6.5 /CUMM) 10.5 H Absolute Lymphocytes (1.2 - 3.4 /CUMM) 1.3 Absolute Monocytes (0.10 - 0.60 /CUMM) 1.6 H Absolute Eosinophils (0.0 - 0.7 /CUMM) 0 Absolute Basophils (0.0 - 0.2 /CUMM) 0 12/19 12/19 1049 1030 Chemistry Sodium (137 - 145 mmol/L) 137 Potassium (3.5 - 5.1 mmol/L) 4.6 Chloride (98 - 107 mmol/L) 102 Carbon Dioxide (22 - 30 mmol/L) 24 Anion Gap (5 - 16) 12 BUN (9 - 20 mg/dL) 25 H Creatinine (0.7 - 1.2 mg/dL) 0.8 Estimated GFR (>60 ml/min) > 60 BUN/Creatinine Ratio (7 - 25 %) 31.3 H Glucose (65 - 99 mg/dL) 207 H Lactic Acid (0.7 - 2.1 mmol/L) 1.3 Calcium (8.4 - 10.2 mg/dL) 9.7 Total Bilirubin (0.2 - 1.3 mg/dL) 0.9 AST (17 - 59 U/L) 20 ALT (21 - 72 U/L) 44 Alkaline Phosphatase (< 127 U/L) 45 Troponin I (<0.11 ng/ml) < 0.01 Qrd-X-Xnspimxcdco Pept (<125 pg/mL) 1430 H Total Protein (6.3 - 8.2 g/dL) 6.9 Albumin (3.5 - 5.0 g/dL) 4.1 Globulin (1.9 - 4.2 gm/dL) 2.8 Albumin/Globulin Ratio (1.1 - 2.2 %) 1.5 Lipase (23 - 300 U/L) 98 Hematology CBC w Diff NO MAN DIFF REQ WBC (4.8 - 10.8 /CUMM) 13.5 H RBC (4.70 - 6.10 /CUMM) 4.69 L Hgb (14.0 - 18.0 G/DL) 14.1 Hct (42 - 52 %) 41.8 L MCV (80.0 - 94.0 FL) 89.0 MCH (27.0 - 31.0 PG) 30.1 MCHC (33.0 - 37.0 G/DL) 33.8 RDW (11.5 - 14.5 %) 14.0 Plt Count (130 - 400 /CUMM) 167 MPV (7.4 - 10.4 FL) 9.0 Gran % (42.2 - 75.2 %) 88.9 H Lymphocytes % (20.5 - 51.1 %) 3.4 L Monocytes % (1.7 - 9.3 %) 7.5 Eosinophils % (0 - 5 %) 0 Basophils % (0.0 - 2.0 %) 0.2 Absolute Granulocytes (1.4 - 6.5 /CUMM) 12.0 H Absolute Lymphocytes (1.2 - 3.4 /CUMM) 0.5 L Absolute Monocytes (0.10 - 0.60 /CUMM) 1.0 H Absolute Eosinophils (0.0 - 0.7 /CUMM) 0 Absolute Basophils (0.0 - 0.2 /CUMM) 0 Urines Urinalysis LIGHT H Urine Color (YEL,AMB,STR) YEL Urine Clarity (CLEAR) CLEAR Urine pH (5.0 - 8.0) 6.0 Ur Specific [place] (1.001 - 1.035) 1.025 Urine Protein (NEG,<30 MG/DL) TRACE H Urine Ketones (NEG) 15 H Urine Nitrite (NEG) NEG Urine Bilirubin (NEG) NEG Urine Urobilinogen (0.1 - 1.0 EU/dl) 0.2 Ur Leukocyte Esterase (NEG) NEG Ur Microscopic SEDIMENT EXAMINED Urine RBC (0 - 5 /HPF) 15-25 H Urine WBC (0 - 2 /HPF) 1-3 H Ur Epithelial Cells (NONE,FEW) RARE Urine Bacteria (NEG/NONE) RARE H Urine Mucus (FEW,NONE) MANY H Urine Hemoglobin (NEG) MOD H Urine Glucose (N MG/DL) >=1000 H Diagnostic Data EKG Results EKG: A. fib 79, right bundle branch block, left anterior fascicular block, new compared to previous. Personally reviewed by me Telemetry: A. fib 70s-90s, personally reviewed by tn CXR Results PATIENT: HOLLY CHO PRESENT AGE: 87 PATIENT ACCOUNT NO: [id number] : [birth year] LOCATION: [facility] ORDERING PHYSICIAN: Rafa VO SERVICE DATE: 12/19/17 EXAM TYPE: RAD - XRY-CHEST XRAY, TWO VIEWS EXAMINATION: XR CHEST CLINICAL INFORMATION: Cough. Fever. Congestion. COMPARISON: Chest done on 09/03/2012. TECHNIQUE: 2 views of the chest were obtained. FINDINGS: Mild pulmonary venous congestion is noted. The cardiomediastinal silhouette is mildly enlarged. Subtle retrocardiac airspace disease is noted, may represent atelectasis versus infiltrate. The remainder of the lung sorensen are clear. There is no evidence of any pleural effusion seen. The visualized upper abdomen is unremarkable. IMPRESSION: Features consistent with mild CHF. Subtle retrocardiac airspace disease is noted, may represent superimposed atelectasis, infiltrate or combination thereof. Other Results CTA Chest: PATIENT: HOLLY CHO PRESENT AGE: 87 PATIENT ACCOUNT NO: [id number] : [birth year] LOCATION: [facility] ORDERING PHYSICIAN: Rafa VO SERVICE DATE: 12/19/17-7365 EXAM TYPE: CAT - CT ABD & PELVIS W/O IV CONTRAS; CT CHEST WO IV CONTRAST EXAMINATION: CT CHEST WITHOUT IV CONTRAST CT ABDOMEN AND PELVIS WITHOUT IV CONTRAST CLINICAL INFORMATION: 87-year-old male with fever and weakness. Evaluate for pneumonia or congestive heart failure. Incontinence. Blood in urine. COMPARISON: CXR from 12/19/2017 TECHNIQUE: Noncontrast multidetector CT imaging examination of the chest, abdomen and pelvis was performed. Axial images are displayed at 0.625 mm and 5 mm slice thickness. Coronal and sagittal reformatted images were generated at the technologist's workstation and submitted for review. DLP: 558 mGy-cm FINDINGS: CHEST - LUNGS and PLEURA: Images of the chest are partially degraded in quality by respiratory motion. Trachea and mainstem bronchi are widely patent. Bronchial thakur are thickened in both lungs. No interstitial edema, pleural effusion or pneumothorax. Multiple micronodular opacities in the lingula are likely secondary to inflammation or infection of the small airways (i.e., probable bronchiolitis). In addition, there are scattered micronodular opacities and scattered, small areas of groundglass and airspace opacity in the left lower lobe. Mild patchy opacity of consolidation and/or atelectasis in the inferior lingula, as well. MEDIASTINUM: Mild cardiomegaly with atherosclerotic calcification of coronary arteries and thoracic aorta. No aortic aneurysm. Calcification is seen at the level of the aortic and mitral valves. No pericardial effusion. The esophagus and thyroid gland are grossly unremarkable. No mediastinal mass. LYMPHATICS: No pathologic sized axillary, hilar or mediastinal lymph nodes. CHEST WALL/BONES: Several old, healed bilateral rib fractures. No acute osseous abnormality. Multilevel osteophyte formation of the visualized degenerated lower cervical and thoracic spine. ABDOMEN AND PELVIS - HEPATOBILIARY: Liver has normal size, contour and attenuation. Gallbladder is unremarkable. No intrahepatic or extrahepatic bile duct dilatation. PANCREAS: Unremarkable. SPLEEN: Unremarkable. ADRENAL GLANDS: Unremarkable. KIDNEYS, URETERS, BLADDER: Kidneys have normal size, cortical thickness and attenuation. Renal vascular calcifications are noted. No nephrolithiasis or ureterolithiasis. Mild fullness of the renal pelvis, bilaterally; however, no overt hydronephrosis. 1.2 cm cortical cyst of the left upper pole and 3.7 cm cortical cyst of the left lower pole. Probable peripelvic cyst in the left lower pole, as well. Urinary bladder, which is moderately distended, has normal wall thickness. No noncontrast imaging evidence of bladder mass or bladder calculi. GI TRACT AND PERITONEUM: Stomach is unremarkable. Loops of bowel are normal in caliber. Appendix is normal. No evidence of acute inflammation or obstruction along the gastrointestinal tract. The amount of fecal material within the colon and rectum is in the normal range. No ascites or pneumoperitoneum. ABDOMINAL WALL: No acute findings. VASCULAR: There is extensive atherosclerotic calcification of the abdominal aorta (and branch vessels) without aortic aneurysm. No retroperitoneal hematoma. LYMPH NODES: No pathologic sized lymph nodes within the abdomen or pelvis. PELVIC VISCERA: Prostate gland is normal in size. No pelvic mass or free fluid. OSSEOUS STRUCTURES: Bone density is diffusely decreased. Within the lumbar spine, facet osteoarthritis is worst at L4-L5. There is vacuum disc degeneration at L4-L5 and L5-S1 and 0.4 cm of grade 1 anterolisthesis of L4 on L5. Multifactorial, severe spinal canal stenosis is present at L4-L5. Osteoarthritis of sacroiliac joints and old, healed, nondisplaced left sacral fracture. Old, healed fractures of left pubic rami. Mild osteoarthritis of hips. IMPRESSION: 1. Mild cardiomegaly without pulmonary edema or pleural effusion. 2. Bronchial thakur are thickened in both lungs, suggestive of airway inflammation. Micronodular opacities are present within the lingula and left lower lobe. Addition, there are patchy groundglass and airspace opacities of the left lower lobe and lingula. Findings are consistent with pneumonia. 3. No specific source of hematuria is identified. No evidence of urolithiasis. Also, no evidence of bladder or renal neoplasm on this noncontrast imaging examination. DICTATED BY: Adrián Briseno MD DATE/TIME DICTATED:12/19/171447 FLIGHT RADIO OFFICER:MP DATE/TIME TRANSCRIBED:12/19/171447 CONFIDENTIAL, DO NOT COPY WITHOUT APPROPRIATE AUTHORIZATION. <Electronically signed in Other Vendor System> SIGNED BY: Adrián Briseno MD 12/19/17 4680 Assessment/Plan Assessment/Plan 87 year old male with history of HTN, DM, HLD who presented to to [facility] with generalized fatigue found to have pneumonia and new onset A. fib. Impression: New onset A. fib Pneumonia Hypertension Hyperlipidemia Diabetes Recommendations: Would recommend starting the patient on Eliquis 5 mg p.o. twice daily given CHADSVASC score of 4: Stroke risk was 4.8% per year in >90,000 patients (the [place] Atrial Fibrillation Cohort Study) and 6.7% risk of stroke/TIA/systemic embolism. I spoke with the patient's daughter Nena regarding plan to start anticoagulation which she is in agreement with. DC Lovenox Continue home lisinopril, statin, patient is currently rate controlled, would defer rate controlling medication at this time Recommend obtaining echo Antibiotics per medical team The plan was discussed with Dr. Aden. Addendum to follow.Thank you for the opportunity to assist in the patient's care. Please do not hesitate to call with any questions. Peter Butler PA-C [facility] ([place], [place]) Cardiology [address] [place] [address], [address] [place] [address] Consult Acknowledgment - Thank you for your consult request. Markie GUPTA,Sylvester 12/20/17 722: Assessment/Plan Consult Acknowledgment - Thank you for your consult request. Attending MD Review Statement Attending Sign Off Attending Cosign Statement: I have: examined this patient, reviewed [facility] EMR data, personally reviewd images, discussd w/resident/PA/MAINTENANCE LEADER. Other Findings: I have personally seen and examined this patient and directed the cardiac plan of care. Agree with AC to decrease stroke risk. Check Echo. Continue telemetry. Lenin Aden MD [facility]
[2017-12-20 15:27] VITALS: BP 110/70
[2017-12-20 22:24] VITALS: BP 118/60
[2017-12-21 07:06] VITALS: BP 110/54
[2017-12-21 08:35] LABS: ABSOLUTE BASOPHIL COUNT 0 /CUMM (0.0-0.2); ABSOLUTE EOSINOPHIL COUNT 0.2 /CUMM (0.0-0.7); ABSOLUTE GRANULOCYTE CT 7.5 /CUMM (1.4-6.5); ABSOLUTE LYMPH COUNT 1.5 /CUMM (1.2-3.4); ABSOLUTE MONOCYTE COUNT 1.5 /CUMM (0.10-0.60); BASOPHIL % 0.2 % (0.0-2.0); EOSINOPHIL % 1.5 % (0-5); GRANULOCYTE % 69.9 % (42.2-75.2); HEMATOCRIT 36.8 % (42-52); MEAN CORPUSCULAR HGB 30.1 PG (27.0-31.0); MEAN CORPUSCULAR HGB CONC 33.8 G/DL (33.0-37.0); MEAN CORPUSCULAR VOLUME 89.1 FL (80.0-94.0); MEAN PLATELET VOLUME 9.6 FL (7.4-10.4); PLATELET COUNT 159 /CUMM (130-400); RBC DISTRIBUTION WIDTH 14.2 % (11.5-14.5); RED BLOOD CELL CT 4.13 /CUMM (4.70-6.10); WHITE BLOOD CELL COUNT 10.7 /CUMM (4.8-10.8)
--- NOTE | 2017-12-21 09:03 | PN- Housestaff ---
Soumya Reynolds 12/21/17 0903: Subjective Follow-up For: PNA Complaints: no complaints Tele-Events Since Last Visit: A fib Subjective: No compliants/no acute events Review of Systems Constitutional: Reports: see HPI. Objective Last 24 Hrs of Vital Signs/I&O Vital Signs Date Time Temp Pulse Resp B/P B/P Pulse O2 O2 Flow FiO2 Mean Ox Delivery Rate 12/21 2135 98.4 82 18 114/60 96 12/21 1456 98.0 95 18 118/58 95 Room Air 12/21 0958 90 110/54 12/21 0706 98.1 90 18 110/54 97 Intake & Output 12/22 0800 12/22 0000 12/21 1600 Intake Total 500 Output Total 300 350 Balance -300 150 Intake, Oral 500 Output, Urine 300 350 Physical Exam General Appearance: Alert, Oriented X3, Cooperative, No Acute Distress HEENT: Atraumatic, Mucous Membr. moist/pink Neck: Supple Cardiovascular: Regular Rate, Normal S1, Normal S2 Lungs: b/l ronchi Abdomen: Normal Bowel Sounds, Soft, No Tenderness Neurological: Normal Speech, Normal Tone Extremities: No Clubbing, No Cyanosis, No Edema Assessment/Plan Assessment: Mr. Lopez is a 87-year-old male with past medical history significant for: Hypertension, hyperlipidemia, BPH, type 2 diabetes mellitus. Patient was complaining of nausea and weakness since morning of 12/19/17, generalized weakness, states has not been feeling well. Patient had one episode of urinating on himself this morning. Problem List: 1. Pneumonia 2. NewonsetA. fib 3. hypertension 4. Hyperlipidemia 5. Type 2 diabetes mellitus 6. BPH PLAN: #Pneumonia: #New onset A. fib: -Continue on telemetry -Elias. Eliquis 5mg daily. -Echocardiogram pending HTN: -Elias. current regimen BPH: Type 2 diabetes mellitus: -Consistent carbohydrate 3 diet Code: Full code Problem List: 1. Pneumonia 2. New onset atrial fibrillation Pain Ratin Pain Location: none Pain Goal: Remain pain free Pain Plan: follow pain pathway Tomorrow's Labs & Rationales: cbc, bep Esdras Banerjee 12/21/17 1239: Attending MD Review Statement Attending Statement Attending MD Statement: examined this patient, discuss w/resident/PA/SOFTWARE DEVELOPMENT MANAGER, agreed w/resident/PA/SOFTWARE DEVELOPMENT MANAGER, discussed with family, reviewed EMR data (avail), discussed with nursing, discussed with case mgmt, reviewed images, amended to note Attending Assessment/Plan: Patient is on iv antibioitcs for pneumonia D3 and follow cultures s/o staph coauglase negative. Transition to PO abx meds. New onset afib rate controlled, PO eliquis, Cardiology appreciated. Follow up case management/SW to help with insurance issues.
--- NOTE | 2017-12-21 11:14 | PN- Cardiology ---
Subjective Subjective: Patient seen and evaluated this morning. No acute events on telemetry, remains A. fib rate controlled. Offers no complaints no chest pain shortness of breath dizziness lightheadedness Review of Systems: Review of systems: See HPI, All other systems negative. Constitutional, no chills no fever, no malaise no weight loss Cardiovascular: No chest pain , no palpitation Respiratory: No dyspnea no cough no sputum no hemoptysis GI: No nausea no vomiting, Muscle skeletal: No joint pain Neurologic: no headache Heme/endocrine: No bruising Objective Vital Signs and I&Os Vital Signs Date Time Temp Pulse Resp B/P B/P Pulse O2 O2 Flow FiO2 Mean Ox Delivery Rate 12/21 0958 90 110/54 12/21 0706 98.1 90 18 110/54 97 12/20 2224 98.9 94 18 118/60 94 Room Air 12/20 2141 Room Air 12/20 1527 99.4 79 18 110/70 93 12/20 1256 94 120/64 Intake & Output 12/21 1600 12/21 0800 12/21 0000 12/20 1600 12/20 0800 12/20 0000 Intake Total 240 480 220 626 3143 Output Total 975 300 575 600 650 Balance -735 180 225 -360 350 Intake, IV 250 1000 Intake, Oral 240 480 550 240 Number 0 Bowel Movements Output, Urine 975 300 575 600 650 Patient 168 lb Weight Physical Exam: Well-developed well-nourished person in no acute distress HEENT: HEAD is atraumatic. moist mucous membranes. Neck: Supple, no bruit Cardiovascular: irregular rate and rhythms no murmurs rubs or gallops, normal JVP Respiratory: No respiratory distress. Patient speaking in full complete sentences. Breath sounds clear to auscultation bilaterally: NO W/R/R Abdomen: Soft Extremity: No edema Neuro: Alert oriented x3 Skin: No appreciable rash on exposed skin, skin is warm and dry. Current Medications: Current Medications Sig/Whitley Start time Last Medication Dose Route Stop Time Status Admin Acetaminophen 650 MG Q6PRN PRN 12/19 1715 AC PO Apixaban 5 MG BID 12/20 2100 DC PO Apixaban 5 MG BID 12/20 1236 AC 12/21 PO 0958 Apixaban 5 MG DAILY 12/20 1051 DC PO Atorvastatin Calcium 10 MG 1700 12/20 1700 AC 12/20 PO 1707 Azithromycin 500 MG DAILY@13312/20 1330 AC 12/20 Sodium Chloride 250 ML IV 1256 Ceftriaxone Sodium 1,000 MG DAILY@12/20 1330 12/20 IV 1255 Finasteride 5 MG DAILY 12/19 1836 AC 12/21 PO 0958 Insulin Aspart 0 TIDAC 12/20 0800 AC 12/20 SC 170 Insulin Detemir 16 UNITS QPM 12/19 2100 AC 12/20 SC 2002 Lisinopril 5 MG DAILY 12/20 1130 AC 12/21 PO 0958 Tramadol HCl 25 MG Q6 PRN 12/19 1715 AC PO Results Last 48 Hrs of Labs/Mics: Laboratory Tests 12/21/17 0655: CBC w Diff NO MAN DIFF REQ, RBC 4.13 L, MCV 89.1, MCH 30.1, MCHC 33.8, RDW 14.2 , MPV 9.6, Gran % 69.9, Lymphocytes % 14.0 L, Monocytes % 14.4 H, Eosinophils % 1.5, Basophils % 0.2, Absolute Granulocytes 7.5 H, Absolute Lymphocytes 1.5, Absolute Monocytes 1.5 H, Absolute Eosinophils 0.2, Absolute Basophils 0 12/20/17 0652: Anion Gap 9, Estimated GFR > 60, BUN/Creatinine Ratio 28.8 H, CBC w Diff NO MAN DIFF REQ, RBC 4.51 L, MCV 90.1, MCH 29.5, MCHC 32.8 L, RDW 14.4, MPV 10.2, Gran % 77.8 H, Lymphocytes % 9.9 L, Monocytes % 12.0 H, Eosinophils % 0.3, Basophils % 0, Absolute Granulocytes 10.5 H, Absolute Lymphocytes 1.3, Absolute Monocytes 1.6 H, Absolute Eosinophils 0, Absolute Basophils 0 12/20/17 0030: Troponin I 0.02 12/19/17 1933: Troponin I 0.02 Microbiology 12/19 2329 URINE ROUT: Legionella Antigen - COMP 12/19 2329 URINE ROUT: Streptococcus pneumoniae Antigen (M - COMP Recent Imaging Studies: Telemetry: A. fib 60s-80s personally reviewed by me Assessment/Plan Assessment/Plan 87 year old male with history of HTN, DM, HLD who presented to to [facility] with generalized fatigue found to have pneumonia and new onset A. fib. Impression: New onset A. fib Pneumonia Hypertension Hyperlipidemia Diabetes Recommendations: Continue Eliquis 5 mg p.o. twice daily given Continue home lisinopril, statin, patient is currently rate controlled, would defer rate controlling medication at this time Echo Pending Antibiotics per medical team The plan was discussed with Dr. Aden. Addendum to follow.Thank you for the opportunity to assist in the patient's care. Please do not hesitate to call with any questions. Peter Butler PA-C [facility] Cardiology [address] [place] [address], [address] [place] [address] Continue telemetry? Yes
[2017-12-21 14:56] VITALS: BP 118/58
[2017-12-21 21:35] VITALS: BP 114/60
--- NOTE | 2017-12-21 21:55 | ECHOCARDIOGRAM REPORT ---
HOLLY CHO Age: 87 : 1930 Gender: M Exam Date: 12/21/2017 08:24 Exam Location: [place] Ht (in): 65 Wt (lb): 150 BSA: 1.78 BP: 110 / 54 Ordering Physician: Rosita Mack MD Referring Physician: Sylvester Aden M.D. Technologist: Brandi Kaminski [facility] Room Number: 180-02 Indications: Afib/flutter Rhythm: Technical Quality: Good FINDINGS Left Ventricle Left ventricular cavity size normal. No obvious regional wall motion abnormalities. Left ventricular wall thickness mildly increased. Left ventricular ejection fraction is estimated at > 55 %. Right Ventricle Normal right ventricular size and function. Right Atrium Mild right atrial dilatation. Left Atrium Mild left atrial dilatation. Mitral Valve Moderate mitral annular calcification. Moderate mitral regurgitation. Aortic Valve Trace aortic regurgitation. Aortic sclerosis. Tricuspid Valve Moderate tricuspid regurgitation. Tricuspid valve not well visualized, grossly normal. Unable to estimate the right ventricular systolic pressure. Pulmonic Valve Pulmonic valve not well visualized. Pericardium No pericardial effusion. Great Vessels Normal size aortic root. CONCLUSIONS Left ventricular cavity size normal. No obvious regional wall motion abnormalities. Left ventricular wall thickness mildly increased. Left ventricular ejection fraction is estimated at > 55 %. Normal right ventricular size and function. Mild right atrial dilatation. Mild left atrial dilatation. Moderate mitral regurgitation. Moderate tricuspid regurgitation. Unable to estimate the right ventricular systolic pressure. Sylvester Aden M.D. (Electronically Signed) Final Date: 21 December 2017 21:51 MEASUREMENTS (Male / Female) Normal Values 2D ECHO LV Diastolic Diameter PLAX 5.2 cm 4.2 - 5.9 / 3.9 - 5.3 cm LV Systolic Diameter PLAX 3.1 cm 2.1 - 4.0 cm LV Fractional Shortening PLAX 40.4 % 25 - 46 % LV Ejection Fraction 2D Teich 70.7 % IVS Diastolic Thickness 1.2 cm LVPW Diastolic Thickness 1.2 cm LV Relative Wall Thickness 0.5 RV Internal Dim ED PLAX 2.4 cm 1.9 - 3.8 cm LVOT Diameter 2.4 cm Aortic Root Diameter 3.4 cm LA Systolic Diameter LX 4.5 cm 3.0 - 4.0 / 2.7 - 3.8 cm LA Volume 46.0 cm 18 - 58 / 22 - 52 cm Ascending Aorta Diameter 3.5 cm DOPPLER AV Peak Velocity 158.0 cm/s AV Peak Gradient 10.0 mmHg AV Mean Velocity 113.0 cm/s AV Mean Gradient 6.0 mmHg AV Velocity Time Integral 32.0 cm LVOT Peak Velocity 96.3 cm/s LVOT Peak Gradient 3.7 mmHg LVOT Mean Velocity 63.9 cm/s LVOT Mean Gradient 2.0 mmHg LVOT Velocity Time Integral 18.8 cm LVOT Stroke Volume 85.0 cm AV Area Cont Eq vti 2.7 cm AV Area Cont Eq pk 2.8 cm MV Peak Velocity 134.0 cm/s MV Peak Gradient 7.2 mmHg MV Mean Velocity 54.1 cm/s MV Mean Gradient 2.0 mmHg Mitral E Point Velocity 121.0 cm/s MV PHT Velocity 144.0 cm/s MV Deceleration [place] 562.0 cm/s MV Pressure Half Time 76.9 ms MV Area PHT 2.9 cm MV Deceleration Time 222.0 ms TR Peak Velocity 308.0 cm/s TR Peak Gradient 37.9 mmHg Right Atrial Pressure 5.0 mmHg Pulmonary Artery Systolic Pressure 42.9 mmHg Right Ventricular Systolic Pressure 42.9 mmHg PV Peak Velocity 79.6 cm/s PV Peak Gradient 2.5 mmHg PV Mean Velocity 56.3 cm/s PV Mean Gradient 1.0 mmHg PV Velocity Time Integral 14.9 cm LV E' Lateral Velocity 9.9 cm/s Mitral E to LV E' Lateral Ratio 12.2 LV E' Septal Velocity 5.3 cm/s Mitral E to LV E' Septal Ratio 23.0
[2017-12-22 05:49] VITALS: BP 102/64
--- NOTE | 2017-12-22 07:11 | PN- Housestaff ---
Constantin Suarez 12/22/17 0711: Subjective Follow-up For: Pneumonia Tele-Events Since Last Visit: Atrial fibrillation overnight rate 72-74 Subjective: Patient initially in the restroom, washing up. Returned to see him seated comfortably at the bedside, reports that he is feeling much improved. No acute overnight events. Denies fever, reports non-productive cough, denies chest pain or shortness of breath. Also discussed with his daughter the plan going forward, to switch to PO antibiotics and discussed plans to discharge home. Review of Systems Constitutional: Denies: chills, fever, weakness. Objective Last 24 Hrs of Vital Signs/I&O Vital Signs Date Time Temp Pulse Resp B/P B/P Pulse O2 O2 Flow FiO2 Mean Ox Delivery Rate 12/22 0549 97.5 86 18 102/64 94 12/22 0000 Room Air 12/21 2135 98.4 82 18 114/60 96 12/21 1456 98.0 95 18 118/58 95 Room Air 12/21 0958 90 110/54 Intake & Output 12/22 0800 12/22 0000 12/21 1600 Intake Total 120 120 500 Output Total 600 300 350 Balance -480 -180 150 Intake, Oral 120 120 500 Output, Urine 600 300 350 Patient 77.564 kg Weight Weight Bed scale Measurement Method Physical Exam General Appearance: Alert, Oriented X3, Cooperative, No Acute Distress HEENT: Atraumatic, PERRLA, EOMI Neck: Supple, No JVD, No thryomegaly Cardiovascular: Regular Rate, Normal S1, Normal S2 Lungs: Mild crackles bilateral lung bases Abdomen: Normal Bowel Sounds, Soft, No Tenderness Neurological: Normal Gait Extremities: Distal extremities cold, difficult to assess pulses Current Medications: Current Medications Sig/Whitley Start time Last Medication Dose Route Stop Time Status Admin Acetaminophen 650 MG Q6PRN PRN 12/19 1715 AC PO Apixaban 5 MG BID 12/20 1236 AC 12/21 PO 205 Atorvastatin Calcium 10 MG 1700 12/20 1700 AC 12/21 PO 1725 Azithromycin 500 MG DAILY 12/22 0900 AC PO Azithromycin 500 MG ONCE ONE 12/21 1515 DC PO 12/21 1516 Azithromycin 500 MG DAILY@1330 12/20 1330 DC 12/21 Sodium Chloride 250 ML IV 1311 Ceftriaxone Sodium 1,000 MG DAILY@1330 12/20 1330 AC 12/21 IV 1311 Finasteride 5 MG DAILY 12/19 1836 AC 12/21 PO 0958 Insulin Aspart 0 TIDAC 12/20 0800 AC 12/21 SC 1726 Insulin Detemir 16 UNITS QPM 12/19 2100 AC 12/21 SC 205 Lisinopril 5 MG DAILY 12/20 1130 AC 12/21 PO 0958 Tramadol HCl 25 MG Q6 PRN 12/19 1715 AC PO Assessment/Plan Assessment: 87-year-old male with PMH of HTN, HLD, BPH, type 2 DM. Patient presented with nausea and generalized weakness since Friday morning, with productive cough, stating that he has not been feeling well. This morning, the patient is reporting feeling much improved. Eager to be discharged home. White blood cells today are 7.9, and the patient was afebrile. We have switched him over to p.o. antibiotics in anticipation of discharge. His bilateral lower extremities were noted to be cold to touch this morning, will initiate workup for PAD with recommendations to follow-up as an outpatient. Echocardiogram showed ejection fraction approximately 55%. Problems: 1. Pneumonia 2. Newonset A. fib 3. Hypertension 4. Hyperlipidemia 5. Type 2 diabetes mellitus 6. BPH Plan: * Azithromycin 500 mg p.o. * Continue Eliquis * Continue Lipitor * Continue lisinopril * Stop ceftriaxone * Continue finasteride * Continue insulin sliding scale * Bilateral lower extremity arterial Doppler ultrasound Full code Eliquis and ALPS DVT prophylaxis Diabetic diet CBC for tomorrow Patient's daughter, Nena can be reached at for updates Problem List: 1. BPH (benign prostatic hyperplasia) 2. Diabetes mellitus 3. New onset atrial fibrillation 4. Pneumonia Pain Ratin Pain Location: bilateral lower extremities Pain Goal: Pain 4 or less Pain Plan: per pathway Tomorrow's Labs & Rationales: cbc & bep Miriam Johnson MD 12/22/17 1452: Attending MD Review Statement Attending Statement Attending MD Statement: examined this patient, discuss w/resident/PA/SILK TRIMMER, agreed w/resident/PA/SILK TRIMMER, reviewed EMR data (avail), discussed with nursing, discussed with case mgmt, amended to note Attending Assessment/Plan: Patient seen and examined. Resting comfortably and not in any acute distress. Complains of fatigue. Denies shortness of breath. Complains of mild productive cough. Examination does not appear to be in any respiratory distress. Adequate entry bilaterally with no added sounds. he has trace peripheral edema in the lower extremities. The feet appear mildly discolored with a bluish hue and a cool to touch. Distal pulses are weakly palpable. He admits to pain intermittently. Denies pain at rest currently. Recommendations: -Transition to oral antibiotic therapy and complete course for his pneumonia. -Patient likely has underlying peripheral arterial disease. Obtain arterial Dopplers.
[2017-12-22 08:07] LABS: ABSOLUTE BASOPHIL COUNT 0 /CUMM (0.0-0.2); ABSOLUTE EOSINOPHIL COUNT 0.2 /CUMM (0.0-0.7); ABSOLUTE GRANULOCYTE CT 5.5 /CUMM (1.4-6.5); ABSOLUTE LYMPH COUNT 1.2 /CUMM (1.2-3.4); BASOPHIL % 0.2 % (0.0-2.0); EOSINOPHIL % 2.6 % (0-5); GRANULOCYTE % 68.9 % (42.2-75.2); HEMATOCRIT 36.3 % (42-52); MEAN CORPUSCULAR HGB 29.9 PG (27.0-31.0); MEAN CORPUSCULAR HGB CONC 33.2 G/DL (33.0-37.0); MEAN CORPUSCULAR VOLUME 90.2 FL (80.0-94.0); MEAN PLATELET VOLUME 9.6 FL (7.4-10.4); PLATELET COUNT 174 /CUMM (130-400); RBC DISTRIBUTION WIDTH 14.1 % (11.5-14.5); RED BLOOD CELL CT 4.02 /CUMM (4.70-6.10); WHITE BLOOD CELL COUNT 7.9 /CUMM (4.8-10.8)
[2017-12-22] MEDS ORDERED: AUGMENTIN 875-1 EACH PO (08:59)
[2017-12-22 14:05] VITALS: BP 130/68
--- NOTE | 2017-12-22 15:22 | Patient Discharge Instructions ---
Discharge Instructions General Discharge Information You were seen/treated for: Acute diarrhea Hypertensive urgency Watch for these problems: With sudden shortness of breath, fever, chest pain, please go to your nearest emergency department. Special Instructions: Please follow-up with your primary care physician about your recent hospitalization. Diet Continue normal diet: Yes Activity Full Activity/No Limits: No Activity Self Limited: Yes Acute Coronary Syndrome Inclusion Criteria At DC or during hospital stay patient has or had the following: ACS DIAGNOSIS No Discharge Core Measures Meds if any: Prescribed or Continued at Discharge Meds if any: NOT Prescribed or Continued at Discharge Congestive Heart Failure Inclusion Criteria At DC or during hospital stay patient has or had the following: CHF DIAGNOSIS No Discharge Core Measures Meds if any: Prescribed or Continued at Discharge Meds if any: NOT Prescribed or Continued at Discharge Cerebrovascular accident Inclusion Criteria At DC or during hospital stay patient has or had the following: CVA/TIA Diagnosis No Discharge Core Measures Meds if any: Prescribed or Continued at Discharge Meds if any: NOT Prescribed or Continued at Discharge Venous thromboembolism Inclusion Criteria VTE Diagnosis No VTE Type NONE VTE Confirmed by (Test) NONE Discharge Core Measures - Per Current guidelines, there needs to be overlap - treatment for the first 5 days of Warfarin therapy. - If discharged on Warfarin prior to 5 days of - overlap therapy, the patient will need to be - assessed for post discharge needs including - *Post discharge parental anticoagulation - *Warfarin and/or parental anticoagulation education - *Follow up date to check INR post discharge At least 5 days overlap therapy as Inpatient No Meds if any: Prescribed or Continued at Discharge Note: Overlap Therapy is Warfarin and Anticoagulant Meds if any: NOT Prescribed or Continued at Discharge
--- NOTE | 2017-12-22 18:13 | PN- Cardiology ---
See Addendum Subjective Subjective: Patient denies lightheadedness/dizziness, chest pain, palpitations, dyspnea. Objective Vital Signs and I&Os Vital Signs Date Time Temp Pulse Resp B/P B/P Pulse O2 O2 Flow FiO2 Mean Ox Delivery Rate 12/22 1405 97.6 68 18 130/68 97 Room Air 12/22 0846 81 124/70 12/22 0549 97.5 86 18 102/64 94 12/22 0000 Room Air 12/21 2135 98.4 82 18 114/60 96 Intake & Output 12/22 1600 12/22 0800 12/22 0000 12/21 1600 12/21 0000 Intake Total 850 120 120 500 240 480 Output Total 100 600 300 350 975 300 Balance 750 -480 -180 150 -735 180 Intake, Oral 850 120 120 500 240 480 Number 1 0 Bowel Movements Output, Urine 100 600 300 350 975 300 Patient 77.564 kg 76.345 kg Weight Weight Bed scale Measurement Method Physical Exam: General: no apparent distress HEENT: NCAT, NO JVD Heart: s1s2, irregular rhythm, not tachycardic, no MRG Lungs: good air entry b/l, diffuse faint insp and exp wheezes, no rales/rhonchi Abd: soft, nt Ext: no peripheral edema Current Medications: Current Medications Sig/Whitley Start time Last Medication Dose Route Stop Time Status Admin Acetaminophen 650 MG Q6PRN PRN 12/19 1715 AC PO Apixaban 5 MG BID 12/20 1236 AC 12/22 PO 0845 Atorvastatin Calcium 10 MG 1700 12/20 1700 AC 12/21 PO 1725 Azithromycin 500 MG DAILY 12/22 0900 DC 12/22 PO 0846 Ceftriaxone Sodium 1,000 MG DAILY@1330 12/20 1330 DC 12/22 IV 1341 Finasteride 5 MG DAILY 12/19 1836 AC 12/22 PO 0846 Insulin Aspart 0 TIDAC 12/20 0800 AC 12/22 SC 1340 Insulin Detemir 16 UNITS QPM 12/19 2100 AC 12/21 SC 2052 Lisinopril 5 MG DAILY 12/20 1130 AC 12/22 PO 0846 Tramadol HCl 25 MG Q6 PRN 12/19 1715 AC PO Results Last 48 Hrs of Labs/Mics: Laboratory Tests 12/22/17 0650: Anion Gap 10, Estimated GFR > 60, BUN/Creatinine Ratio 27.1 H, CBC w Diff NO MAN DIFF REQ, RBC 4.02 L, MCV 90.2, MCH 29.9, MCHC 33.2, RDW 14.1, MPV 9.6, Gran % 68.9, Lymphocytes % 15.7 L, Monocytes % 12.6 H, Eosinophils % 2.6, Basophils % 0.2, Absolute Granulocytes 5.5, Absolute Lymphocytes 1.2, Absolute Monocytes 1.0 H, Absolute Eosinophils 0.2, Absolute Basophils 0 12/21/17 0655: CBC w Diff NO MAN DIFF REQ, RBC 4.13 L, MCV 89.1, MCH 30.1, MCHC 33.8, RDW 14.2 , MPV 9.6, Gran % 69.9, Lymphocytes % 14.0 L, Monocytes % 14.4 H, Eosinophils % 1.5, Basophils % 0.2, Absolute Granulocytes 7.5 H, Absolute Lymphocytes 1.5, Absolute Monocytes 1.5 H, Absolute Eosinophils 0.2, Absolute Basophils 0 Recent Imaging Studies: Telemetry personally reviewed: Patient is not currently on telemetry as he just came back from ultrasound, but previously he was in atrial fibrillation Assessment/Plan Assessment/Plan 1. new onset atrial fibrillation currently on eliquis 2. hypertension 3. hyperlipidemia 4. pneumonia 5. diabetes Patient remains in atrial fibrillation, however is asymptomatic. Blood pressure is well controlled. [id number] 4, continue with Eliquis. low dose metoprolol can be initiated, toprol XL 25mg po daily, for rate control. Continue telemetry? Yes
--- NOTE | 2017-12-22 18:35 | ULTRASOUND REPORT ---
EXAMINATION: US DUPLEX LOWER EXTREMITY ARTERY/GRAFT LIMITED, bilateral CLINICAL INFORMATION: Bilateral leg pain. Shortness of breath. COMPARISON: None TECHNIQUE: Real-time ultrasound and Doppler techniques (integrating B-mode 2-D vascular images, Doppler spectral analysis and color flow Doppler imaging) were utilized to interrogate the lower extremities. FINDINGS: Right lower extremity: Common femoral artery: 81.5 cm/sec; triphasic waveform Superficial femoral artery proximal: 87.2 cm/sec; biphasic waveform Superficial femoral artery mid portion: 74.5 cm/sec; biphasic waveform Superficial femoral artery distal: 63.9 cm/sec; biphasic waveform Profunda artery: 47.1 cm/sec; biphasic waveform Popliteal artery: 43.6 cm/sec; biphasic waveform Posterior tibial artery: 42.4 cm/sec; monophasic waveform Anterior tibial artery: 31.4 cm/sec; monophasic waveform Dorsalis pedis artery: 14.5 cm/sec; monophasic waveform Left lower extremity: Common femoral artery: 61.6 cm/sec; biphasic waveform Superficial femoral artery proximal: 64.5 cm/sec; biphasic waveform Superficial femoral artery mid portion: 71.5 cm/sec; triphasic waveform Superficial femoral artery distal: 54.5 cm/sec; biphasic waveform Profunda artery: 55.1 cm/sec; biphasic waveform Popliteal artery: 40.1 cm/sec; biphasic waveform Posterior tibial artery: 19.1 cm/sec; monophasic waveform Anterior tibial artery: 58.1 cm/sec; biphasic waveform Dorsalis pedis artery: 23.6 cm/sec; monophasic waveform ADDITIONAL FINDINGS: None. IMPRESSION: The arteries of the bilateral lower extremities are patent. Biphasic and monophasic waveforms throughout the arteries of the lower extremities suggestive of underlying peripheral arterial disease. Greater sensitivity and specificity can be obtained with pre-and post exercise PVRs with JASWANT calculations. Also consider dedicated CTA for further anatomical detail.
[2017-12-22] MEDS ORDERED: ELIQUIS5 M1 PO (20:16)
--- NOTE | 2017-12-22 20:29 | Discharge Summary ---
Visit Information Visit Dates Admission Date: 12/19/17 Discharge Date: 12/22/17 Hospital Course Course Attending Physician: Alex GUPTA,Miriam Primary Care Physician: Patient Has No Primary Care Dr Hospital Course: Mr. Lopez is a 87-year-old male with past medical history significant for: Hypertension, hyperlipidemia, BPH, type 2 diabetes mellitus. Patient described as special needs by his daughter, unable to communicate clearly does not speak B[place]udian only Kazakh, all information received from daughter Nena. Patient was complaining of nausea and weakness since the morning of admission, generalized weakness, stated that he had not been feeling well. Patient had one episode of urinating on himself the morning of admission, this had never happened before. Patient denied cough, fever, chills, abdominal pain, vomiting, diarrhea, constipation, increased urinary frequency, urgency, pain with urination, more episodes of inability to contain his urine. Denied sick contacts, recent travel. He was admitted to the telemetry unit with new onset atrial fibrillation, although his rate was not tachycardic, so eliquis was added to his medication regimen as well as a low-dose beta wes upon discharge. In addition, he was treated for pneumonia with ceftriaxone and azithromycin IV, transitioned to azithromycin PO for discharge, as he improved clinically. His BPH was monitored, with reported hematuria upon admission and CT abdomen/pelvis negative for acute renal/bladder findings. His home finasteride was continued and his urine culture showed coagulase negative staph, more likely colonization, but also sensitive to the antibiotics the patient was already on. The patient was prepared for discharge with instructions to follow-up with his trial consultant as well as PCP and a referral was provided to the clinic with Dr. Augustine. Allergies: Coded Allergies: NO KNOWN ALLERGIES (09/03/12) Pertinent Lab Results: The patient demonstrated leukocytosis upon admission, WBC's at 13.5 but this resolved with a white count of 7.[address] Chest showed: 1. Mild cardiomegaly without pulmonary edema or pleural effusion. 2. Bronchial thakur are thickened in both lungs, suggestive of airway inflammation. Micronodular opacities are present within the lingula and left lower lobe. Addition, there are patchy groundglass and airspace opacities of the left lower lobe and lingula. Findings are consistent with pneumonia. 3. No specific source of hematuria is identified. No evidence of urolithiasis. Also, no evidence of bladder or renal neoplasm on this noncontrast imaging examination. CT Abdomen & Pelvis showed: 1. Mild cardiomegaly without pulmonary edema or pleural effusion. 2. Bronchial thakur are thickened in both lungs, suggestive of airway inflammation. Micronodular opacities are present within the lingula and left lower lobe. Addition, there are patchy groundglass and airspace opacities of the left lower lobe and lingula. Findings are consistent with pneumonia. 3. No specific source of hematuria is identified. No evidence of urolithiasis. Also, no evidence of bladder or renal neoplasm on this noncontrast imaging examination. Echocardiogram demonstrated: Left ventricular cavity size normal. No obvious regional wall motion abnormalities. Left ventricular wall thickness mildly increased. Left ventricular ejection fraction is estimated at > 55 %. Normal right ventricular size and function. Mild right atrial dilatation. Mild left atrial dilatation. Moderate mitral regurgitation. Moderate tricuspid regurgitation. Unable to estimate the right ventricular systolic pressure. Duplex Ultrasound of the BLE showed: The arteries of the bilateral lower extremities are patent. Biphasic and monophasic waveforms throughout the arteries of the lower extremities suggestive of underlying peripheral arterial disease. Greater sensitivity and specificity can be obtained with pre-and post exercise PVRs with JASWANT calculations. Also consider dedicated CTA for further anatomical detail. Disposition Summary Disposition Principal Diagnosis: Pneumonia Additional Diagnosis: BPH, HTN, new-onset atrial fibrillation Discharge Disposition: home or self care Discharge Instructions General Discharge Information Code Status: Full Code Patient's Diet: Diabetic diet Patient's Activity: As tolerated Follow-Up Instructions/Appts: Patient instructed to follow-up with his trial consultant and primary care doctor, a referral has been provided to Dr. Augustine and the [facility]. Patient will benefit from evaluation by the vascular surgery service as an outpatient Medications at Discharge Discharge Medications: Continue taking these medications: Metformin HCl (Metformin HCl) 1,000 MG TABLET 1 Tablet ORAL TWICE DAILY Comments: NOT GIVEN Finasteride (Finasteride) 5 MG TABLET 1 Tablet ORAL DAILY Comments: Last Taken: 12/22/17 Time: 9:00 AM Lisinopril (Lisinopril) 5 MG TABLET 1 Tablet ORAL DAILY Comments: Last Taken: 12/22/17 Time: 9:00 AM Sitagliptin Phosphate (Januvia) (Unknown Strength) TABLET Unknown Dose ORAL DAILY Comments: NOT GIVEN Simvastatin (Zocor*) (Unknown Strength) TABLET Unknown Dose ORAL Every night Comments: ATORVASTATIN GIVEN INSTEAD Last Taken: 12/21/17 Time: 5:25 PM Insulin Detemir (Levemir) 100 UNIT/ML VIAL 16 Units SC Every night Comments: Last Taken: 12/22/17 Time: 9:00 PM Start taking the following new medications: Apixaban (Eliquis) 5 MG TABLET 5 Milligram ORAL TWICE DAILY Qty = 60 No Refills Comments: Last Taken: 12/22/17 Time: 8PM Amoxicillin/Potassium Clav (Augmentin 875-125 Tablet) 875 MG-125 MG TABLET 1 Tablet ORAL TWICE DAILY Qty = 6 No Refills Comments: TO START ON 12/22/17 IN THE MORNING Copies To: David Peters MD; Fawn GUPTA,Fawn Attending MD Review Statement Documenting Attending: Miriam Johnson MD Other Findings: Medically stable to be discharged
== END 2017-12-22 20:34 | DRG 308 ==
LOC: ERH 10:15 → 1NO 16:33 → ERHI 16:33 → ENRESERV 18:23 → CANRESERV 18:23 → EDBEDREQ 18:36 → ENRESERV 19:59 → CANRESERV 19:59 → ENRESERV 20:48 → CANRESERV 20:48 → ENRESERV 20:49 → ENTRNSPT 21:50 → EDTRNSPT 22:03 → EDTRNSPTSTS 22:03 → 1NO 22:16 → CMPTRNSPT 22:23 → 1NO 12-22 07:25
PROVIDERS: Emergency Medicine; Internal Medicine; Student in an Organized Health Care Education/Training Program
DX: I48.91 Unspecified atrial fibrillation (principal); J18.9 Pneumonia, unspecified organism; E11.9 Type 2 diabetes mellitus without complications; E78.5 Hyperlipidemia, unspecified; N40.0 Benign prostatic hyperplasia without lower urinary tract symptoms; Z79.4 Long term (current) use of insulin; I45.10 Unspecified right bundle-branch block; R31.9 Hematuria, unspecified; D72.829 Elevated white blood cell count, unspecified; B95.7 Other staphylococcus as the cause of diseases classified elsewhere; I10 Essential (primary) hypertension
CPT/HCPCS: 1NSP; 36415; 36592; 71046; 74176; 81001; 82436; 87040; 87086; 87147; 87449; 87450; 93005; 93010; 93306; 93925; 96374; 96375; J0456; J0696; J1650; J1940; J7040